=== PATIENT | male | born 1975 ===

== ENCOUNTER 2025-02-28 08:19 | Emergency (ER) | payer MEDICAID ==
[~2025-02-28] VITALS: Ht 165.1 cm; Wt 77.7 kg
[2025-02-28 08:50] LABS: APPEARANCE,URINE CLEAR (CLEAR); GLUCOSE, URINE (UA) NEGATIVE (NEGATIVE); LEUKOCYTE ESTERASE ,URINE NEGATIVE Leu/uL (NEGATIVE); NITRATE,URINE NEGATIVE (NEGATIVE); OCCULT BLOOD,URINE NEGATIVE (NEGATIVE)
[2025-02-28 08:53] LABS: ADD UA MICROSCOPIC YES
[2025-02-28 08:54] LABS: IMMATURE GRANULOCYTE ABSOLUTE 0.03 K/uL (0-1); NUCLEATED RED BLOOD CELLS 0.0 % (0.0-0.19); PLATELET COUNT (AUTO) 381 K/uL (130-400); RED BLOOD CELL COUNT(AUTO) 4.90 MIL/uL (4.50-6.20); RED CELL DISTRIBUTION WIDTH 13.4 % (11.0-15.5); WHITE BLOOD COUNT (AUTO) 14.3 K/uL (4.8-10.8)
[2025-02-28 08:58] LABS: AMPHET/METH SCREEN,URINE NEGATIVE (NEGATIVE); BARBITURATE SCREEN, URINE NEGATIVE (NEGATIVE); CANNABINOID SCREEN,URINE NEGATIVE (NEGATIVE); COCAINE SCREEN,URINE NEGATIVE (NEGATIVE)
[2025-02-28 09:30] LABS: CREATININE 0.8 mg/dL (0.5-1.3); GLOMERULAR FILTR. RATE CALC 106 mL/min (>90); GLUCOSE,RANDOM 84 mg/dL (70-105); SODIUM SERUM 138 mmol/L (136-145); UREA NITROGEN, BLOOD 9 mg/dL (7-18)
[2025-02-28 09:40] LABS: CREATINE KINASE, TOTAL 1591 U/L (21-232)
[2025-02-28 09:48] LABS: ALCOHOL, BLOOD < 3 mg/dL (0-10)
--- NOTE | 2025-02-28 11:00 | ERN ---
General Chief Complaint: Suicidal Ideation Stated Complaint: SI Time Seen by MD: 08:26 Source: patient History of Present Illness Initial Comments Patient is a 53-year-old male coming in complaining of suicidal ideation. Patient does has a psychiatric history. Patient has been incoherent voicing suicidal ideation. Allergies: Coded Allergies: No Known Drug Allergies (Unverified Allergy, Unknown, 02/28/25) Past Medical History Past Medical History: Unable to Obtain Medical History Other: PT DOES NOT KNOW MED HX Past Surgical History: Unknown ROS Dictation CONSTITUTIONAL: No chills, no fever, no weakness, no diaphoresis, no malaise. HEAD/FACE: No signs of trauma. EENT: No eye pain, no blurred vision, no tearing, no double vision, no ear pain, no ear discharge, no nose pain, no nasal congestion, no throat pain, no throat swelling, no mouth pain. RESPIRATORY: No cough, no orthopnea, no SOB, no stridor, no wheezing. CARDIOVASCULAR: No chest pain, no edema, no palpitations, no syncope. GASTROINTESTINAL/ABDOMINAL: No abdominal pain, no constipation, no diarrhea, no nausea, no vomiting. GENITOURINARY: No abnormal discharge, no dysuria, no frequent urination, no hematuria. No complaints of pain in the genitals. MUSCULOSKELETAL: No back pain, no gout, no joint pain, no joint swelling, no muscle pain, no muscle stiffness, no neck pain. INTEGUMENTARY: No change in color, no change in hair/nails, no dryness, no lesion, no lumps, no rash. NEUROLOGICAL/PSYCH: No anxiety, not depressed, no emotional problem, no headache, no numbness, no pre-existing deficit, no history of seizures, no tremors, no weakness. HEMATOLOGIC/LYMPHATIC: Not anemic, no history of blood clots, no apparent bleeding, no bruising, glands not swollen. All Systems Negative, Except as Noted. Physical Exam Physical Exam Dictation VITAL SIGNS: Reviewed. GENERAL APPEARANCE: Alert, oriented x3, no acute distress, obese. HEAD AND FACE: Non-traumatic. EYES: PERRL, pink conjunctivas, eyelid no trauma, anterior chamber clear. EARS: Pinnas intact and no signs of trauma or erythema. Ear canals clear and no discharge. TMs no erythema. NOSE: No discharge, no bleeding. OROPHARYNX: Mouth normal, teeth no caries, tongue pink. Pharynx clear, no erythema. Tonsils no exudates, no abscesses noted. Mucous membrane moist. NECK: Supple, non-tender, no thyromegaly, no masses, no JVD, no bruits. BREAST: Deferred. CHEST: No tenderness, no crepitus, no paradoxical movement, no retractions. LUNGS: Clear, well-ventilated, symmetric, no rales, no wheezing, no rhonchi, no stridor, good breath sounds bilaterally. HEART: Regular rate, regular rhythm, no murmur, no gallops. VASCULAR: No peripheral edema. ABDOMEN: Soft, positive bowel sounds, nondistended, no guarding, nontender, no rebound, no masses no hepatomegaly, no splenomegaly, no Blanco's sign, no hernias. RECTAL: Deferred. GENITAL: Deferred. NEUROLOGICAL: Normal speech, gross motor function intact, gross sensory function intact. MUSCULOSKELETAL: Neck nontender, full range of motion, back nontender, full range of motion. EXTREMITIES: Nontender, full range of motion. SKIN: Color pink, dry, no turgor, no rash, no lacerations, no abrasions, no contusions. LYMPHATICS: Deferred. Results Laboratory and Microbiology Lab and Micro Result Laboratory Tests Test 02/28/25 08:15 02/28/25 08:44 02/28/25 12:13 Urine Color YELLOW (YELLOW) Urine Appearance CLEAR (CLEAR) Urine pH 6.0 (5.0-8.0) Urine Specific [place] 1.021 (1.001-1.031) Urine Protein 20 mg/dL (NEGATIVE) H Urine Glucose (UA) NEGATIVE mg/dL (NEGATIVE) Urine Ketones 20 mg/dL (NEGATIVE) H Urine Occult Blood NEGATIVE (NEGATIVE) Urine Nitrate NEGATIVE (NEGATIVE) Urine Bilirubin NEGATIVE mg/dL (NEGATIVE) Urine Urobilinogen 0.2 mg/dL (0.2-1.0) Urine Leukocyte Esterase NEGATIVE Jaime/uL Urine RBC 0-1 /HPF (0-1) Urine WBC 0-1 /HPF (0-1) Urine Bacteria None /HPF (None Seen) Urine Opiates Screen NEGATIVE (NEGATIVE) Urine Barbiturates Screen NEGATIVE (NEGATIVE) Urine Phencyclidine Screen NEGATIVE (NEGATIVE) Urine Amphetamines Screen NEGATIVE (NEGATIVE) Urine Benzodiazepines Screen NEGATIVE (NEGATIVE) Urine Cocaine Screen NEGATIVE (NEGATIVE) Urine Marijuana (THC) Screen NEGATIVE (NEGATIVE) White Blood Count 14.3 K/uL (4.8-10.8) H Red Blood Count 4.90 MIL/uL (4.50-6.20) Hemoglobin 13.8 g/dL (14.0-18.0) L Hematocrit 41.5 % (42-54) L Mean Corpuscular Volume 84.7 fL (79-99) Mean Corpuscular Hemoglobin 28.2 pg (27.0-33.0) Mean Corpuscular Hemoglobin Concent 33.3 g/dL (32.0-36.0) Red Cell Distribution Width 13.4 % (11.0-15.5) Platelet Count 381 K/uL (130-400) Mean Platelet Volume 9.0 fL (7.5-10.5) Immature Granulocyte % (Auto) 0.2 % (0-1) Neutrophils (%) (Auto) 77.7 % (40.0-77.0) H Lymphocytes (%) (Auto) 12.7 % (21.0-51.0) L Monocytes (%) (Auto) 8.6 % (3.0-13.0) Eosinophils (%) (Auto) 0.4 % (0.0-8.0) Basophils (%) (Auto) 0.4 % (0.0-5.0) Neutrophils # (Auto) 11.1 K/uL (1.8-7.7) H Lymphocytes # (Auto) 1.8 K/uL (1.0-4.8) Monocytes # (Auto) 1.2 K/uL (0.1-1.0) H Eosinophils # (Auto) 0.05 K/uL (0.00-0.70) Basophils # (Auto) 0.05 K/uL (0.00-0.20) Absolute Immature Granulocyte (auto 0.03 K/uL (0-1) Nucleated Red Blood Cells 0.0 % (0.0-0.19) Sodium Level 138 mmol/L (136-145) Potassium Level 3.6 mmol/L (3.5-5.1) Chloride Level 101 mmol/L (101-111) Carbon Dioxide Level 28 mmol/L (21-32) Blood Urea Nitrogen 9 mg/dL (7-18) Creatinine 0.8 mg/dL (0.5-1.3) Glomerular Filtration Rate Calc 106 mL/min (>90) Random Glucose 84 mg/dL (70-105) Total Calcium 8.5 mg/dL (8.5-10.1) Total Creatine Kinase 1591 U/L (21-232) *H 1376 U/L (21-232) *H Salicylates Level < 2.8 mg/dL (2.8-20.0) L Acetaminophen Level < 1 mcg/mL (10-29) L Serum Alcohol < 3 mg/dL (0-10) Labs Reviewed?: Yes MDM MDM: Differential diagnosis: Psychiatric illness, schizophrenia, suicidal ideation, Rationale: Tests considered and ordered secondary to shared decision making include: Previous outside records reviewed: Old ER visits. Risk of complication and/or morbidity or mortality of patient management: None Medications-Per medication reconciliation Need for hospitalization: Patient does meet criteria for hospitalization. Need for emergency major/minor surgery: No There are no social concerns with this patient. Prescription drug management Prescriptions will include symptomatic care Patient's prior external medical records from other ER visits were reviewed by me as indicated. Prior testing and results from previous visits were reviewed. Prior tests were taken into account with medical decision making and resource utilization, independent historian/historians were used to obtain complete medical history. I independently interpreted the test that were performed, results were reviewed by me and considered findings on radiology if ordered. Medical management and examination interpretation discussions were had by me with other qualified healthcare professionals as indicated for the patient's care. Patient will be transferred to [facility] ED Course Orders Procedure Category Date Status Time Cbc With Differential LAB 02/28/25 Complete 08: Alcohol, Blood LAB 02/28/25 Complete 08: Salicylate LAB 02/28/25 Complete 08: Acetaminophen LAB 02/28/25 Complete 08:26 Urinalysis Profile LAB 02/28/25 Complete 08: Chest 1vw RAD 02/28/25 Resulted 08: Creatine Kinase, Total LAB 02/28/25 Complete 08: Basic Metabolic Panel LAB 02/28/25 Complete 08: Drug Screen Urine LAB 02/28/25 Complete 08:26 0.9%Nacl 1000ml (Ns PHA 02/28/25 Complete 1000ml) 10:00 0.9%Nacl 1000ml (Ns PHA 02/28/25 Complete 1000ml) 11:00 Creatine Kinase, Total LAB 02/28/25 Complete 10:43 Current Medications Medications (Trade) Dose Ordered Sig/Libia Route PRN Reason Start Time Stop Time Status Last Admin Dose Admin Sodium Chloride 1,000 ml @ 0 mls/hr ONCE ONCE IV 02/28/25 10:00 02/28/25 10:03 DC 02/28/25 11:15 Sodium Chloride 1,000 ml @ 0 mls/hr ONCE ONCE IV 02/28/25 11:00 02/28/25 11:01 DC 02/28/25 11:16 Vital Signs Date Time Temp Pulse Resp B/P (MAP) Pulse Ox O2 Delivery O2 Flow Rate FiO2 02/28/25 08:26 98.1 105 18 105/69 98 Room Air 0 DX & DISP Disposition: Transfer Decision to Admit Time: 16:57 Departure Impression: Primary Impression: Psychiatric illness Additional Impressions: Schizophrenia, Suicidal ideation Condition: Stable Referrals: SELF,REFERRAL (PCP) OMI DHILLON MD Feb 28, 2025 11:00
--- NOTE | 2025-02-28 11:00 | HMCIMG ---
EXAM: CR Chest, 1 View. CLINICAL HISTORY: cp COMPARISON: None provided. FINDINGS: Suspected left diaphragmatic hernia as there is a gastric shadow projecting over the mid to lower left hemithorax. Lungs are clear. No pleural effusion or pneumothorax. Heart size and pulmonary vessels are within normal limits. IMPRESSION: 1. Suspected left diaphragmatic hernia with gastric shadow projecting over the mid to lower left hemithorax. 2. No acute cardiopulmonary findings. /[place]
--- NOTE | 2025-02-28 11:02 | NUR ---
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
[2025-02-28] MEDS: 0.9%NACL 1000ML 1,000 ML IV ONE ×2 (11:15→11:16)
--- NOTE | 2025-02-28 12:45 | NUR ---
tropical desulfurizer hand with pt for evaluation
--- NOTE | 2025-02-28 14:42 | NUR ---
TROPICAL AT BEDSIDE EAT THIS TIME
--- NOTE | 2025-02-28 16:24 | NUR ---
TROPICAL MANAGER OF SCHOOL SENT INFOR TO [facility]
--- NOTE | 2025-02-28 17:36 | NUR ---
TRANSPORT HERE FOR PT [facility]SF[facility]
[2025-02-28 17:57] VITALS: BP 115/71; PULSE 90; RESP 18; TEMP 98.1; O2SAT 98
== END 2025-02-28 17:40 ==
LOC: EDH 08:19 → EDBD 08:19 → EDH 17:40
DX: R45.851 Suicidal ideations (principal); F20.9 Schizophrenia, unspecified; Z79.899 Other long term (current) drug therapy
CPT/HCPCS: 99285; 96360; 71045; 82550 ×2; 80048; 80305; 85025; 36415; 81001; G0481; J7030 ×2